=== PATIENT | female | born 2000 | race Caucasian/White ===

== ENCOUNTER 2019-03-13 07:43 | Inpatient (IN) ==
[2019-03-13] MEDS ORDERED: LACTATED RINGER'S 1,000 ML IV PRN ×3 (08:36→13:28)
[2019-03-13] MEDS ORDERED: OXYTOCIN 30 UNITS/500 ML BAG IV PRN ×3 (08:36→21:29)
[2019-03-13 08:57] LABS: Hematocrit (blood only) 35.8 % (37-47); Hemoglobin 12.2 g/dL (12.0-16.0); Mean Platelet Volume 10.3 fL (7.4-10.4); Platelet Count 265 K/uL (130-400); RDW Coefficient of Variation 14.4 % (11.5-14.5); RDW Standard Deviation 46.5 fL (36.4-46.3); Red Blood Count 4.07 M/uL (4.2-5.4); White Blood Count 14.31 K/uL (4.8-10.8)
[2019-03-13] MEDS: LACTATED RINGER'S 1,000 ML IV SCH ×5 (08:58→16:44)
[2019-03-13 08:59] LABS: Mean Corpuscular Hgb Conc 34.1 g/dL (32-36)
--- NOTE | 2019-03-13 09:13 | History & Physical Report ---
Date of Service March 13, 2019 Assessment & Plan (1) Elective induction of labor planned: 18yo at 41 weeks GA. IOL for late term . 1. Fetus: Cat 1 2. Labor: Melgoza out. Start Oxytocin 3. GBS - 4. Pain: Epidural PRN 5. Vitals wnl History of Present Illness Primary Care Provider: ANKIT PCP 18yo at 41.0 weeks GA. PAtient present for late term IOL. Denies ctx, VB, LOF. Good FM. course has been uncomplicated to date. A+/Rubella immune/ GBS - Allergies Allergy/AdvReac Type Severity Reaction Status Date / Time No Known Allergies Allergy Verified 03/13/19 07:56 Home Medications Home Medications Medication Instructions Recorded Confirmed Type PNV cmb#95-ferrous fumarate-FA 1 tab PO HS 12/01/18 03/13/19 History [] Patient History Family History Other Family history non-contributory Social History Preferred Language: Zambian Communication Ability: Effective Lead Scientist Required: No Beliefs That Will Affect Care: None marital status: Current Living Situation: Spouse Other Information That Helps Us Care for You: No Feels Safe at Home: Yes Smoking Status: Never smoker Do You Dip or Chew Tobacco: No Second Hand Exposure: No Tobacco Cessation Education Requested by Patient: No Hx Alcohol Use: No Hx Substance Use: No Physical Exam Genitourinary: OB Exam Abdomen: + vertex Manual OB Exam: + cervical dilation 3 cm, + cervical effacement 70%, + station -2 and + amniotic fluid OB Exam Monitor Tracing: + external FHT monitor used, + external uterine monitor used, + category I and + normal FHT variability EFW 7-8lb Results & Data Vital Signs (Past 12 Hours) Vital Signs Temp Pulse Resp BP 03/13/19 09:02 77 120/77 03/13/19 08:11 123 H 112/78 03/13/19 07:53 97.9 F 125 H 20 114/76
[2019-03-13] MEDS ORDERED: ePHEDrine sulfate 50 MG/ML AMP ONE (12:27)
[2019-03-13] MEDS ORDERED: BUPIVACAINE 0.25% 30 ML VIAL ONE (12:27)
[2019-03-13] MEDS ORDERED: fentaNYL 2MCG/ML ROPIV 1.25MG/ML 100 ML BAG EPI ONE (12:28)
[2019-03-13] MEDS ORDERED: fentaNYL citrate 100 MCG/2 ML VIAL ONE (12:28)
--- NOTE | 2019-03-13 13:22 | Anesthesiology Consultation ---
Date of Service March 13, 2019 Assessment & Plan (1) Encounter for pre-operative examination: Chart Review Chart Review: Acceptable Risk for Surgery and Patient NOT seen in Pre Admission Testing Consults Requested none History Height/Weight Height: 5 ft 4 in Weight: 88.451 kg Allergies Allergy/AdvReac Type Severity Reaction Status Date / Time No Known Allergies Allergy Verified 03/13/19 07:56 Medications Home Medications Medication Instructions Recorded Confirmed Last Taken PNV cmb#95-ferrous fumarate-FA 1 tab PO HS 12/01/18 03/13/19 03/12/19 22:00 [] Active Medications Generic Name Dose Route Start Last Admin Trade Name Freq PRN Reason Stop Dose Admin Lactated Ringer's 1,000 mls @ 125 mls/hr 03/13/19 08:45 03/13/19 13:08 Lr IV 03/15/19 08:44 999 mls/hr .Q8H DAMIEN Infusion Oxytocin 30 units in 500 mls @ 10 mls/hr 03/13/19 08:36 03/13/19 11:22 Pitocin IV 03/15/19 08:35 0.6 units/hr .Q24H PRN 10 mls/hr Labor Induction/Augmentation Titration Protocol 0.6 UNITS/HR Past Medical History Medical History No significant past medical history Past Family History Family History Other Family history non-contributory Social History Smoking Status: Never smoker Do You Dip or Chew Tobacco: No Hx Alcohol Use: No Hx Substance Use: No substance use type: does not use Physical Exam Vital Signs Last Vital Signs Temp 36.9 C 03/13/19 12:42 Pulse 103 H 03/13/19 13:18 Resp 18 03/13/19 13:17 BP 112/61 03/13/19 13:18 Pulse Ox 100 03/13/19 13:18 Testing Laboratory Results 03/13/19 08:49
[2019-03-13] MEDS ORDERED: fentaNYL 2MCG/ML ROPIV 1.25MG/ML 100 ML BAG EPI PRN (13:28)
[2019-03-13] MEDS ORDERED: NALOXONE HCL 0.4 MG/1 ML VIAL/CARP IV PRN (13:28)
[2019-03-13] MEDS ORDERED: NALBUPHINE HCL INJ 10 MG/ML AMP IV PRN (13:28)
[2019-03-13] MEDS ORDERED: ePHEDrine sulfate 50 MG/ML AMP IV PRN (13:28)
[2019-03-13] MEDS ORDERED: DiphenhydrAMINE HCL 50 MG/ML VIAL IV PRN (13:28)
[2019-03-13] MEDS ORDERED: ONDANSETRON INJ 2 MG/ML 2 ML VIAL IV PRN (13:28)
[2019-03-13] MEDS ORDERED: NALOXONE HCL 1 MG in SODIUM CHLORIDE 0.9% 1000ML 1,000 ML IV PRN (13:28)
--- NOTE | 2019-03-13 14:09 | Obstetrical Progress Note ---
Date of Service March 13, 2019 Assessment & Plan (1) Elective induction of labor planned: 18yo at 41 weeks GA. IOL for late term . 1. Fetus: Cat 1 2. Labor: Progressing. Continue Oxytocin, SROM clear ~1300 3. GBS - 4. Pain: Epidural placed 5. Vitals wnl Subjective Patient Doing well. Comfortable with epidural. SROM ~ 1300 Physical Exam Genitourinary: OB Exam Abdomen: + regular contractions Manual OB Exam: + cervical dilation (4-5), + cervical effacement 80%, + station -2 and + amniotic fluid clear OB Exam Monitor Tracing: + external FHT monitor used, + external uterine monitor used, + category I and + normal FHT variability Results & Data Vital Signs (Past 12 Hours) Vital Signs Temp Pulse Resp BP Pulse Ox 03/13/19 14:04 97 H 89 L 03/13/19 14:03 102 H 96 03/13/19 14:00 98.2 F 20 03/13/19 13:58 104 H 100 03/13/19 13:56 95 H 94 03/13/19 13:55 111 H 116/74 03/13/19 13:53 103 H 100 03/13/19 13:50 102 H 121/71 03/13/19 13:48 100 H 100 03/13/19 13:45 86 119/69 03/13/19 13:44 97 H 92 03/13/19 13:43 99 H 98 03/13/19 13:40 90 113/63 03/13/19 13:38 92 H 100 03/13/19 13:35 96 H 117/65 03/13/19 13:33 100 H 97 03/13/19 13:30 88 20 118/67 03/13/19 13:28 88 100 03/13/19 13:24 95 H 120/69 03/13/19 13:23 93 H 100 03/13/19 13:22 89 121/68 03/13/19 13:20 94 H 123/65 03/13/19 13:18 103 H 112/61 100 03/13/19 13:17 18 03/13/19 13:16 88 109/57 L 03/13/19 13:14 100 H 106/57 L 03/13/19 13:13 104 H 100 03/13/19 13:12 105 H 103/58 L 03/13/19 13:11 109 H 109/53 L 03/13/19 13:08 106 H 88/51 L 100 03/13/19 13:06 20 03/13/19 13:03 99 H 100 03/13/19 13:02 101 H 118/58 L 03/13/19 13:00 88 128/73 03/13/19 12:58 105 H 100 03/13/19 12:53 102 H 100 03/13/19 12:48 91 H 100 03/13/19 12:43 82 100 03/13/19 12:42 98.4 F 81 20 122/79 03/13/19 12:38 84 100 03/13/19 12:03 88 119/80 03/13/19 11:04 83 120/68 03/13/19 11:00 98.6 F 20 03/13/19 10:10 85 110/68 03/13/19 09:02 99.1 F 77 20 120/77 03/13/19 08:11 123 H 112/78 03/13/19 07:53 97.9 F 125 H 20 114/76
[2019-03-13] MEDS ORDERED: Nursing to Pharmacy Communication ONE (19:19)
[2019-03-13] MEDS ORDERED: HYDROCORTISONE ACETATE 25 MG SUPP PR PRN (21:29)
[2019-03-13] MEDS ORDERED: SUPERCREAM 0.870% 15 GM JAR EXT PRN (21:29)
[2019-03-13] MEDS ORDERED: ACETAMINOPHEN 325 MG TAB PO PRN (21:29)
[2019-03-13] MEDS ORDERED: BENZOCAINE 20% AER SPR 82.5 GM CAN EXT PRN (21:29)
[2019-03-13] MEDS ORDERED: DIPHTHERIA/TETANUS/PERTUSSIS 0.5 ML SYR/VIAL IM ONE (21:29)
--- NOTE | 2019-03-13 23:26 | Anesthesia Procedure Note ---
Date of Service March 13, 2019 Anesthesia Post Epidural Note Vital Signs Vital Signs: Temp Pulse Resp BP Pulse Ox 37.0 C 114 H 18 126/68 99 03/13/19 22:50 03/13/19 23:20 03/13/19 22:50 03/13/19 23:20 03/13/19 21:18 Pain Intensity Abdomen: Pain Intensity: 5 Notes Mental Status: alert / awake / arousable Patient Amnestic to Procedure: Yes Nausea / Vomiting: adequately controlled Pain: adequately controlled Airway Patency, RR, SpO2: stable & adequate BP & HR: stable & adequate Hydration State: stable & adequate Neuraxial Anesthesia: sensory block resolved Anesthetic Complications: no major complications apparent and Pt Satisfied with anesthetic care Epidural: Removed without complications and With tip intact
[2019-03-14 06:09] LABS: Hematocrit (blood only) 32.6 % (37-47); Hemoglobin 10.9 g/dL (12.0-16.0); Mean Corpuscular Hgb Conc 33.4 g/dL (32-36); Mean Corpuscular Volume 87.6 fL (80-100); Mean Platelet Volume 10.4 fL (7.4-10.4); Platelet Count 231 K/uL (130-400); RDW Coefficient of Variation 14.5 % (11.5-14.5); RDW Standard Deviation 46.6 fL (36.4-46.3); Red Blood Count 3.72 M/uL (4.2-5.4); White Blood Count 17.97 K/uL (4.8-10.8)
--- NOTE | 2019-03-14 08:12 | Obstetrical Progress Note ---
Date of Service <Alesha Blevins MD - Last Filed: 03/14/19 08:27> March 14, 2019 Assessment & Plan <Alesha Blevins MD - Last Filed: 03/14/19 08:27> (1) care following vaginal delivery: 18yo with at 41 weeks. PPD #1 -Pt tired,with headache. Advised goal of rest today. -Routine care -Ambulation encouraged -Pain control Subjective <Alesha Blevins MD - Last Filed: 03/14/19 08:27> Ambulation: ambulating normally Voiding: no voiding problems Passing Gas:: Yes Diet Tolerance:: regular diet Lochia:: Moderate Feeding Type:: breast feeding Current Pain Level(1-10): 4 Eyes: no problem reported (no blurry vision) Respiratory: no dyspnea Cardiovascular: no chest pain, no palpitations, no lightheadedness and no calf pain Gastrointestinal: no nausea and no vomiting Genitourinary (female): no dysuria Neurologic: + headache(s) (4/10 headache. States she hasn't slept much for the last 27 hours.) Physical Exam <Alesha Blevins MD - Last Filed: 03/14/19 08:27> Vital Signs (Past 24 Hours) Last Vital Signs Temp 36.8 C 03/14/19 03:00 Pulse 95 H 03/14/19 03:00 Resp 18 03/14/19 03:00 BP 107/61 03/14/19 03:00 Pulse Ox 99 03/13/19 21:18 Respiratory normal respiratory effort, lungs clear to auscultation Cardiovascular Rate/Rhythm: regular rate and regular rhythm Extremities: no calf tenderness Genitourinary OB Exam Abdomen: + fundal height Fundus: + firm and + relation to umbilicus (at umbilicus) Results & Data <Alesha Blevins MD - Last Filed: 03/14/19 08:27> Laboratory Results Laboratory Results - last 24 hr 03/13/19 03/14/19 08:49 05:47 WBC 14.31 H 17.97 H RBC 4.07 L 3.72 L Hgb 12.2 10.9 L Hct 35.8 L 32.6 L MCV 88.0 87.6 MCH 30.0 29.3 MCHC 34.1 33.4 RDW Std Deviation 46.5 H 46.6 H RDW Coeff of Sohail 14.4 14.5 Plt Count 265 231 MPV 10.3 10.4 Medications Administered Home Medications PNV cmb#95-ferrous fumarate-FA [] 1 tab PO HS 12/01/18 [History Confirmed 03/13/19] Active Medications Acetaminophen (Tylenol) 650 mg PO Q6H PRN PRN Reason: Pain/MARTINEZ/Fever Stop: 04/12/19 21:28 Benzocaine (Dermoplast Pain Relieving [place]) 1 appln EXT PRN PRN PRN Reason: Perineal Discomfort Stop: 04/12/19 21:28 Bisacodyl (Dulcolax) 5 mg PO 2000 [facility] Stop: 03/14/19 20:01 Bisacodyl (Dulcolax) 10 mg PA DAILY PRN PRN Reason: No BM on 2nd post- day Stop: 04/14/19 08:59 Cocaine HCl (Supercream 0.870%) 1 gm EXT BID PRN PRN Reason: Hemorrhoidal Inflammation Stop: 03/27/19 21:28 Diphenhydramine HCl (Benadryl) 25 mg IV Q6H PRN PRN Reason: Itching Stop: 03/14/19 13:27 Docusate Sodium (Colace) 100 mg PO BID [facility] Stop: 04/13/19 08:59 Ephedrine Sulfate (Ephedrine Sulfate) 10 mg IV Q5M PRN PRN Reason: Hypotension Stop: 03/14/19 13:27 Hydrocortisone (Anusol Hc) 25 mg PA BID PRN PRN Reason: Hemorrhoidal Inflammation Stop: 04/12/19 21:28 Lactated Ringer's (Lr) 1,000 mls @ 999 mls/hr IV .Q1H1M PRN PRN Reason: Tachysystole Stop: 03/15/19 08:35 Oxytocin (Pitocin) 30 units in 500 mls @ 333.333 mls/hr IV .Q1H30M PRN; Protocol PRN Reason: Bleeding Control Stop: 04/12/19 08:35 Last Titration: 03/13/19 23:30 Dose: Infused Documented by: Naloxone HCl 1 mg/ Sodium (Chloride) 1,002.5 mls @ 50 mls/hr IV .Q20H3M PRN PRN Reason: itching or nausea Stop: 03/14/19 13:27 Lactated Ringer's (Lr) 1,000 mls @ 999 mls/hr IV .Q1H1M PRN PRN Reason: Hypotension Stop: 03/14/19 13:27 Oxytocin (Pitocin) 30 units in 500 mls @ 333.333 mls/hr IV .Q1H30M PRN; Protocol PRN Reason: Bleeding Control Ibuprofen (Motrin) 600 mg PO Q4H PRN PRN Reason: Pain/MARTINEZ/Cramping/Fever Stop: 04/12/19 21:28 Nalbuphine HCl (Nubain) 5 mg IV Q10M PRN PRN Reason: itching or nausea Stop: 03/14/19 13:27 Naloxone HCl (Narcan) 0.1 mg IV UD PRN PRN Reason: respiratory depression Stop: 03/14/19 13:27 Ondansetron HCl (Zofran) 4 mg IV Q6H PRN PRN Reason: Nausea And Vomiting Stop: 03/14/19 13:27 Prenat Multivit/Bench Mechanic/Iron/Folic Ac ( Vitamin) 1 tab PO QAM [facility] Stop: 04/13/19 08:59 Ropivacaine (Epidural (L&D)) 100 ml EPI PRN PRN; Protocol PRN Reason: Pain R/T Labor Stop: 03/14/19 13:27 Last Admin: 03/13/19 19:55 Dose: 100 ml Documented by: <Garth Bhardwaj MD - Last Filed: 03/14/19 08:38> Co-Signing Physician Notes Patient seen and agree with findings and plan
[2019-03-14] MEDS: IBUPROFEN 600 MG TAB PO PRN ×3 (08:28→22:34)
[2019-03-14] MEDS: PRENATAL VITAMIN 1 TAB PO SCH (08:29)
[2019-03-14] MEDS: DOCUSATE SODIUM 100 MG CAP PO SCH ×2 (08:29→20:01)
--- NOTE | 2019-03-14 08:47 | Delivery Summary ---
DATE OF OPERATION: 03/13/2019 PROCEDURE: Normal spontaneous vaginal delivery with superficial left vaginal side wall laceration repairs. SURGEON: Garth Bhardwaj MD PREOPERATIVE DIAGNOSES: 1. Single intrauterine at 41 weeks gestational age. 2. Late term induction of labor. POSTOPERATIVE DIAGNOSES: 1. Single intrauterine at 41 weeks gestational age. 2. Late term induction of labor. 3. Delivered. ESTIMATED BLOOD LOSS: 300 mL. DRAINS: None. FLUIDS: Continuous lactated ringer. URINE OUTPUT: 300 mL at the completion of delivery. COMPLICATIONS: None. FINDINGS: A viable male infant with weight pending and Apgars of 8 and 9 at 1 and 5 minutes respectively. INDICATIONS: Ms. Pablo is a 18-year-old G1, P0, admitted at 41 weeks 0 days gestational age for late term induction of labor. At initial presentation, the patient was noted to have a Melgoza fell out while being admitted to labor and delivery. On first exam, she was found to be 3 cm dilated, 75% effaced, -2 station. Fetus was cephalic by Wolfgang's. Oxytocin was started per regular protocol. The patient continued to progress to the labor and received epidural. Upon reevaluation, she was found to be 5 cm dilated, 80% effaced, -1 station. Oxytocin was continued to be titrated. The patient continued to progress to complete-complete +2 with feeling desire to push. DESCRIPTION OF PROCEDURE: The patient progressed to 10 cm dilated, 100% effaced, +2 station, and pushed over intact perineum with epidural anesthesia and delivered a viable male with weight and Apgars as noted above. There was noted to be a compound hand presentation. The head was delivered and the posterior hand and arm were then delivered. The remainder of the anterior shoulder and body then followed. was noted to be vigorous upon delivery. was noted to be moving both arms normally. A 1-minute delayed cord clamping was initiated, after which the cord was double clamped and cut. Attention was then turned to delivery of the placenta which was delivered intact with 3-vessel cord, gentle cord traction, after blood was collected. On inspection of perineum, vagina and cervix, there was noted to be a superficial left vaginal side wall laceration which were repaired with 3-0 Vicryl in an interrupted stitch. Both mother and were stable in the immediate post-delivery. Needle, sponge and instrument counts were correct at the completion of the case. I attest to the content of the Intraoperative Record and any orders documented therein. Any exceptions are noted below. MTDD
[2019-03-14] MEDS ORDERED: BISACODYL 5 MG TABEC PO SCH (20:00)
[2019-03-15] MEDS: IBUPROFEN 600 MG TAB PO PRN ×2 (05:19→09:07)
--- NOTE | 2019-03-15 07:48 | Obstetrical Progress Note ---
Date of Service <Alesha Blevins MD - Last Filed: 03/15/19 07:49> March 15, 2019 Assessment & Plan <Alesha Blevins MD - Last Filed: 03/15/19 07:49> (1) care following vaginal delivery: 18yo with at 41 weeks. PPD #2 -Pt doing well -Discharge today -instructions reviewed Subjective <Alesha Blevins MD - Last Filed: 03/15/19 07:49> Ambulation: ambulating normally Voiding: no voiding problems Passing Gas:: Yes Diet Tolerance:: regular diet Lochia:: Moderate Feeding Type:: breast feeding Current Pain Level(1-10): 0 Eyes: no problem reported (no blurry vision) Respiratory: no dyspnea Cardiovascular: no palpitations, no lightheadedness and no calf pain Gastrointestinal: no nausea and no vomiting Genitourinary (female): no dysuria Neurologic: no headache(s) Physical Exam <Alesha Blevins MD - Last Filed: 03/15/19 07:49> Vital Signs (Past 24 Hours) Last Vital Signs Temp 36.5 C 03/15/19 00:30 Pulse 82 03/15/19 00:30 Resp 18 03/15/19 00:30 BP 114/77 03/15/19 00:30 Pulse Ox 96 03/15/19 00:30 Respiratory normal respiratory effort, lungs clear to auscultation Cardiovascular Rate/Rhythm: regular rate and regular rhythm Genitourinary OB Exam Abdomen: + fundal height Fundus: + firm and + relation to umbilicus (1 above) Results & Data <Alesha Blevins MD - Last Filed: 03/15/19 07:49> Medications Administered Home Medications PNV cmb#95-ferrous fumarate-FA [] 1 tab PO HS 12/01/18 [History Confirmed 03/13/19] Active Medications Acetaminophen (Tylenol) 650 mg PO Q6H PRN PRN Reason: Pain/MARTINEZ/Fever Stop: 04/12/19 21:28 Benzocaine (Dermoplast Pain Relieving [place]) 1 appln EXT PRN PRN PRN Reason: Perineal Discomfort Stop: 04/12/19 21:28 Bisacodyl (Dulcolax) 10 mg TN DAILY PRN PRN Reason: No BM on 2nd post- day Stop: 04/14/19 08:59 Cocaine HCl (Supercream 0.870%) 1 gm EXT BID PRN PRN Reason: Hemorrhoidal Inflammation Stop: 03/27/19 21:28 Docusate Sodium (Colace) 100 mg PO BID [facility] Stop: 04/13/19 08:59 Last Admin: 03/14/19 20:01 Dose: 100 mg Documented by: Hydrocortisone (Anusol Hc) 25 mg TN BID PRN PRN Reason: Hemorrhoidal Inflammation Stop: 04/12/19 21:28 Lactated Ringer's (Lr) 1,000 mls @ 999 mls/hr IV .Q1H1M PRN PRN Reason: Tachysystole Stop: 03/15/19 08:35 Oxytocin (Pitocin) 30 units in 500 mls @ 333.333 mls/hr IV .Q1H30M PRN; Protocol PRN Reason: Bleeding Control Stop: 04/12/19 08:35 Last Titration: 03/13/19 23:30 Dose: Infused Documented by: Oxytocin (Pitocin) 30 units in 500 mls @ 333.333 mls/hr IV .Q1H30M PRN; Protocol PRN Reason: Bleeding Control Ibuprofen (Motrin) 600 mg PO Q4H PRN PRN Reason: Pain/MARTINEZ/Cramping/Fever Stop: 04/12/19 21:28 Last Admin: 03/15/19 05:19 Dose: 600 mg Documented by: Prenat Multivit/Hand Wood Sander/Iron/Folic Ac ( Vitamin) 1 tab PO QAM [facility] Stop: 04/13/19 08:59 Last Admin: 03/14/19 08:29 Dose: 1 tab Documented by: <Shawnee Gonzalez MD, FACOG - Last Filed: 03/15/19 07:55> Co-Signing Physician Notes Resident Physician Supervision Note: I interviewed and examined the patient. Discussed with Dr. Longoria and agree with findings and plan as documented in the note. Any exceptions or clarifications are listed here: Doing well. Plan d/c. Instructions given. Documented By: Shawnee Gonzalez MD, FACOG
[2019-03-15 08:21] LABS: Hematocrit (blood only) 32.8 % (37-47); Hemoglobin 10.8 g/dL (12.0-16.0)
[2019-03-15] MEDS ORDERED: BISACODYL 10 MG SUPP PR PRN (09:00)
[2019-03-15] MEDS: PRENATAL VITAMIN 1 TAB PO SCH (09:07)
[2019-03-15] MEDS: DOCUSATE SODIUM 100 MG CAP PO SCH (09:07)
== END 2019-03-15 20:20 | disposition home or self-care (01) | DRG 806 ==
LOC: 4S1 07:43 → 4S2 03-14 00:47

== ENCOUNTER 2021-08-13 12:39 | Inpatient (IN) ==
[2021-08-13] MEDS ORDERED: OXYTOCIN 30 UNITS/500 ML BAG IV PRN ×3 (12:43→13:45)
--- NOTE | 2021-08-13 13:07 | History & Physical Report ---
Date of Service August 13, 2021 Assessment & Plan (1) with 41 completed weeks gestation: Plan: admit, gbs neg. plan to start pitocin. arom as indicated. epidural on demand. Anticipate . Admission and Anticipated Discharge Date Admission Date: August 13, 2021 History of Present Illness Chief Complaint: post dates induction Primary Care Provider: Yi Degroot DO Patient is a 20yowf with iup at 41 1/7 weeks who presents to labor and delivery for induction for postdates. She notes good fm. occasional contractions. no lof/vb. essentially uncomplicated. labs- Blood Type A Positive 12/25/20 Antibody Screen NEGATIVE 12/25/20 Hemoglobin 11.0 g/dL (12.0-16.0) L 05/15/21 Hematocrit 32.9 % (37-47) L 05/15/21 Mean Corpuscular Volume 87.2 fL (80-100) 12/25/20 Platelet Count 326 K/uL (130-400) 12/25/20 Rubella IgG Antibody Immune (Immune) 12/25/20 Rapid Plasma Reagin Nonreactive (Nonreactive) 12/25/20 Hepatitis B Surface Antigen Neg (Neg) 12/25/20 HIV (1&2) Ab and P24 Ag, 4th Gener Neg (Neg) 12/25/20 Glucose 1 Hour 50 gm Load 109 mg/dl (70-130) 05/15/21 Maternal Serum Alpha Fetoprotein 25.8 ng/mL 02/19/21 OB Optional Labs: Chlamydia trachomatis RNA NOT DETECTED (NOT DETECTED) 12/25/20 Neisseria gonorrhoeae RNA NOT DETECTED (NOT DETECTED) 12/25/20 Thyroid Stimulating Hormone (TSH) 3.300 uIu/ml (0.300-4.500) 12/01/18 Alpha Fetoprotein Triple Screen SEE NOTE 02/19/21 Labs Reviewed: cfdna low risk CF+, FOB neg afp neg- Allergies Allergy/AdvReac Type Severity Reaction Status Date / Time No Known Drug Allergies Allergy Mild none Verified 08/13/21 12:55 Home Medications Medication Instructions Recorded Confirmed Type vit no.95-ferrous 1 tab PO HS 12/01/18 08/13/21 History fumarate 28 mg-folic acid 800 mcg tablet () Patient History Medical History (Updated 08/13/21 @ 13:11 by Shawnee Gonzalez MD, FACOG) No significant past medical history Family History Mother Bicornate uterus Thyroid disease Grandmother (Maternal) Colorectal cancer Diabetes Twin Father Hypertension Social History Smoking Status: Never smoker Second Hand Exposure: No; Hx Alcohol Use: No Hx Substance Use: No Preferred Language: Kittitian Communication Ability: Effective Medical Leader Required: No Beliefs That Will Affect Care: None marital status: marital status details: Bridger (23) [phone] Current Living Situation: Spouse Current Living Situation Comment: lives with spouse and son, no pets. current occupational status: employed current occupation: [employer] Other Information That Helps Us Care for You: No Feels Safe at Home: Yes Safety Concerns: Feels Safe At This Time Assistive Devices: None OB History g1--03/02, , 8#7, no issues SHUTTLELESS [employer] History noncontributory Physical Exam Constitutional: WD/WN, vitals as above Gastrointestinal (Abdomen): soft, gravid, nt efw--8-9# Psychiatric: A+Ox3, euthymic affect Genitourinary: cx--2+/50/-2/mid/mod attempted to place chao bulb just just pulled out with minimal traction toco--intermittent contractions efm--125 wtih mod variability, accels to 160s, no decels Results & Data ([place]) Vital Signs (Past 12 Hours) Vital Signs Temp Pulse Resp BP 08/13/21 12:52 37.1 C 100 H 20 123/61 Coding Level of Care Code None Diagnoses with 41 completed weeks gestation Z3A.41
[2021-08-13 13:19] LABS: Hematocrit (blood only) 35.9 % (37-47); Hemoglobin 11.8 g/dL (12.0-16.0); Mean Corpuscular Hemoglobin 29.3 pg (25-34); Mean Corpuscular Hgb Conc 32.9 g/dL (32-36); Mean Corpuscular Volume 89.1 fL (80-100); Mean Platelet Volume 9.7 fL (7.4-10.4); Platelet Count 248 K/uL (130-400); RDW Coefficient of Variation 13.7 % (11.5-14.5); RDW Standard Deviation 44.8 fL (36.4-46.3); Red Blood Count 4.03 M/uL (4.2-5.4); White Blood Count 10.14 K/uL (4.8-10.8)
[2021-08-13] MEDS: LACTATED RINGER'S 1,000 ML IV PRN ×2 (13:43→21:38)
[2021-08-13] MEDS: ACETAMINOPHEN 325 MG TAB PO PRN (21:38)
[2021-08-13] MEDS ORDERED: BUPIVACAINE 0.25% 30 ML VIAL ONE (23:25)
[2021-08-13] MEDS ORDERED: SODIUM CHLORIDE 0.9% INJ 10 ML VIAL ONE (23:25)
[2021-08-13] MEDS ORDERED: ePHEDrine sulfate 50 MG/ML AMP ONE (23:25)
[2021-08-13] MEDS ORDERED: fentaNYL citrate 100 MCG/2 ML VIAL ONE (23:25)
[2021-08-13] MEDS ORDERED: fentaNYL 2MCG/ML ROPIVACAINE 1.25MG/ML 100 ML BAG EPI ONE (23:26)
[2021-08-14] MEDS ORDERED: ePHEDrine sulfate 50 MG/ML AMP IV PRN (00:22)
[2021-08-14] MEDS ORDERED: NALBUPHINE HCL INJ 10 MG/ML AMP IV PRN (00:22)
[2021-08-14] MEDS ORDERED: NALOXONE HCL 0.4 MG/1 ML VIAL/CARP IV PRN (00:22)
[2021-08-14] MEDS ORDERED: NALOXONE HCL 1 MG in SODIUM CHLORIDE 0.9% 1000ML 1,000 ML IV PRN (00:22)
[2021-08-14] MEDS ORDERED: fentaNYL 2MCG/ML ROPIVACAINE 1.25MG/ML 100 ML BAG EPI PRN (00:22)
[2021-08-14] MEDS ORDERED: diphenhydrAMINE 50 MG/ML VIAL IV PRN (00:22)
[2021-08-14] MEDS ORDERED: ONDANSETRON INJ 2 MG/ML 2 ML VIAL IV PRN (00:22)
--- NOTE | 2021-08-14 00:22 | Anesthesiology Consultation ---
Date of Service August 14, 2021 Assessment & Plan Chart Review Chart Review: Patient NOT seen in Pre Admission Testing and Acceptable Risk for Labor Epidural Consults Requested none ASA ASA2 Proposed Anesthesia Anesthesia Type: Labor Epidural Risk / Benefits Reviewed With: PT / POA / Parent / Guardian, Accepts Plan and Informed Consent Obtained History Height/Weight Height: 5 ft 5 in Weight: 96.162 kg Allergies Allergy/AdvReac Type Severity Reaction Status Date / Time No Known Drug Allergies Allergy Mild none Verified 08/13/21 12:55 Medications Home Medications Medication Instructions Recorded Confirmed Last Taken vit no.95-ferrous 1 tab PO HS 12/01/18 08/13/21 08/12/21 20:00 fumarate 28 mg-folic acid 800 mcg tablet () Active Medications Generic Name Dose Route Start Last Admin Trade Name Freq PRN Reason Stop Dose Admin Acetaminophen 650 mg 08/13/21 21:23 08/13/21 21:38 Acetaminophen 325 Mg Tab PO 09/12/21 21:22 650 mg Q4H PRN Administration Headache or Pain Lactated Ringer's 1,000 mls @ 125 mls/hr 08/13/21 12:43 08/13/21 22:15 Lr IV 08/15/21 12:42 125 mls/hr .Q8H PRN Infusion L&D Protocol Protocol Oxytocin 30 units in 500 mls @ 19 mls/hr 08/13/21 13:45 08/13/21 22:15 Pitocin IV 08/15/21 13:44 1.14 units/hr .Q24H PRN 19 mls/hr Labor Induction/Augmentation Titration Protocol 1.14 UNITS/HR Past Medical History Medical History (Updated 08/13/21 @ 13:11 by Shawnee Gonzalez MD, FACOG) No significant past medical history Exercise / Class Metabolic Activity II 4-5 Yardwork/Stairs/Walk up hill Past Family History Family History Mother Bicornate uterus Thyroid disease Grandmother (Maternal) Colorectal cancer Diabetes Twin Father Hypertension Past Anesthesia History No Hx of Anesthesia Complications and No Family Hx of Anesthesia Complications History of PONV No Hx of PONV and No Hx of Motion Sickness Social History Smoking Status: Never smoker Hx Alcohol Use: No Hx Substance Use: No substance use type: does not use Physical Exam Vital Signs Last Vital Signs Temp 36.9 C 08/13/21 23:30 Pulse 79 08/14/21 00:19 Resp 18 08/13/21 23:30 BP 87/50 L 08/14/21 00:19 Pulse Ox 94 08/14/21 00:16 ENMT Mouth: no dentition abnormality Thyromental Distance: > or= 3.5 Finger Breadths Mallampati Class: II Neck normal visual inspection Respiratory normal respiratory effort Auscultation: lungs clear to auscultation bilaterally Cardiovascular Rate/Rhythm: regular rate and regular rhythm Psychiatric Orientation: alert Testing Laboratory Results 08/13/21 13:09 Blood Type A Positive 08/13/21 13:09 Antibody Screen NEGATIVE 08/13/21 13:09
[2021-08-14] MEDS ORDERED: CALCIUM CARBONATE 500 MG CHEWABLE TAB PO PRN (00:58)
--- NOTE | 2021-08-14 01:02 | Labor Progress Brief Note ---
Date of Service August 14, 2021 Subjective comfortable with epidural Assessment & Plan (1) with 41 completed weeks gestation: Plan: continue current management. Fetus overall reassuring with occasional varia bles. hopefully on the verge of active labor. anticipate . Admission and Anticipated Discharge Date Admission Date: August 13, 2021 Physical Exam Physical Exam: cx--4/100/-2 iupc placed toco--q2min, pit at 19 efm--150s with mod variabiltiy, small accels, variables with some contractions. Results & Data ([facility]) Vital Signs (Past 12 Hours) Vital Signs Temp Pulse Resp BP Pulse Ox 08/14/21 00:56 79 93 08/14/21 00:54 80 94 08/14/21 00:51 85 93 08/14/21 00:49 93 H 94 08/14/21 00:46 75 94 08/14/21 00:43 72 96/53 L 08/14/21 00:41 75 94 08/14/21 00:36 73 93 08/14/21 00:31 85 95 08/14/21 00:28 74 94 08/14/21 00:26 81 95/51 L 94 08/14/21 00:22 92/54 L 08/14/21 00:21 86 94 08/14/21 00:19 79 87/50 L 08/14/21 00:16 73 97/55 L 94 08/14/21 00:13 70 99/54 L 08/14/21 00:11 71 94/51 L 93 08/14/21 00:10 80 94 08/14/21 00:08 92 H 98/68 L 08/14/21 00:06 85 99 08/14/21 00:04 84 92 08/14/21 00:01 83 100 08/13/21 23:56 82 100 08/13/21 23:51 84 95 08/13/21 23:30 36.9 C 18 08/13/21 22:48 74 121/74 08/13/21 21:15 36.7 C 18 08/13/21 19:15 37.1 C 18 08/13/21 19:00 84 130/81 08/13/21 18:01 80 131/79 08/13/21 16:51 36.7 C 86 20 123/73 08/13/21 16:03 82 123/77 08/13/21 15:02 37.3 C 77 20 118/75 08/13/21 13:54 84 125/71 Coding Level of Care Code None Diagnoses with 41 completed weeks gestation Z3A.41
[2021-08-14] MEDS: LACTATED RINGER'S 1,000 ML IV PRN ×2 (01:11→05:30)
--- NOTE | 2021-08-14 04:20 | Labor Progress Brief Note ---
Date of Service August 14, 2021 Subjective comfortable Assessment & Plan (1) with 41 completed weeks gestation: Plan: discussed concerns about fhr and lack of significant change given adequate appearing contractions. If unable to improve either, may need to proceed with c/s. Patient expresses understanding. Admission and Anticipated Discharge Date Admission Date: August 13, 2021 Physical Exam Physical Exam: cx--5-6/100/-2 forebag palpated and ruptured for clear toco--q2-3min, pit at 19, mvus>200 for most part since iupc placement. efm--140s with mod variability, occasional late appearing decel with some contractions responsive to position change Results & Data ([facility]) Vital Signs (Past 12 Hours) Vital Signs Temp Pulse Resp BP Pulse Ox 08/14/21 04:13 61 113/59 L 08/14/21 04:11 61 95 08/14/21 04:06 62 94 08/14/21 04:01 71 94 08/14/21 03:56 67 94 08/14/21 03:51 67 94 08/14/21 03:46 79 94 08/14/21 03:43 68 117/74 08/14/21 03:41 81 94 08/14/21 03:40 36.9 C 08/14/21 03:37 68 93 08/14/21 03:36 68 94 08/14/21 03:31 62 93 08/14/21 03:29 74 104/70 08/14/21 03:26 76 84/54 L 94 08/14/21 03:25 67 94 08/14/21 03:21 70 94 08/14/21 03:16 70 93 08/14/21 03:12 63 84/53 L 08/14/21 03:11 65 93 08/14/21 03:06 70 94 08/14/21 03:01 67 93 08/14/21 03:00 18 08/14/21 02:57 58 L 83/50 L 08/14/21 02:56 58 L 93 08/14/21 02:51 63 94 08/14/21 02:46 66 93 08/14/21 02:44 64 88/57 L 94 08/14/21 02:41 62 93 08/14/21 02:36 62 93 08/14/21 02:31 63 93 08/14/21 02:30 18 10/01/21 02:28 60 89/50 L 08/14/21 02:26 66 93 08/14/21 02:21 61 93 08/14/21 02:16 61 93 08/14/21 02:12 63 89/53 L 08/14/21 02:11 61 93 08/14/21 02:06 64 93 08/14/21 02:01 63 93 08/14/21 02:00 18 08/14/21 01:58 61 88/54 L 08/14/21 01:56 63 93 08/14/21 01:51 62 93 08/14/21 01:46 63 93 08/14/21 01:44 61 89/53 L 08/14/21 01:41 62 93 08/14/21 01:36 64 93 08/14/21 01:31 66 92 08/14/21 01:30 36.9 C 18 08/14/21 01:28 65 90/54 L 08/14/21 01:26 79 94 08/14/21 01:21 71 93 08/14/21 01:16 79 94 08/14/21 01:11 90 97/54 L 93 08/14/21 01:06 107 H 94 08/14/21 01:01 72 93 08/14/21 01:00 77 94 08/14/21 00:59 74 89/51 L 08/14/21 00:56 79 93 08/14/21 00:54 80 94 08/14/21 00:51 85 93 08/14/21 00:49 93 H 94 08/14/21 00:46 75 94 08/14/21 00:43 72 96/53 L 08/14/21 00:41 75 94 08/14/21 00:36 73 93 08/14/21 00:31 85 95 08/14/21 00:28 74 94 08/14/21 00:26 81 95/51 L 94 08/14/21 00:22 92/54 L 08/14/21 00:21 86 94 08/14/21 00:19 79 87/50 L 08/14/21 00:16 73 97/55 L 94 08/14/21 00:13 70 99/54 L 08/14/21 00:11 71 94/51 L 93 08/14/21 00:10 80 94 08/14/21 00:08 92 H 98/68 L 08/14/21 00:06 85 99 08/14/21 00:04 84 92 08/14/21 00:01 83 100 08/13/21 23:56 82 100 08/13/21 23:51 84 95 08/13/21 23:30 36.9 C 18 08/13/21 22:48 74 121/74 08/13/21 21:15 36.7 C 18 08/13/21 19:15 37.1 C 18 08/13/21 19:00 84 130/81 08/13/21 18:01 80 131/79 08/13/21 16:51 36.7 C 86 20 123/73 Coding Level of Care Code None Diagnoses with 41 completed weeks gestation Z3A.41
--- NOTE | 2021-08-14 04:56 | Communication Note ---
Date of Service: August 14, 2021 after breaking the forebag, several large variabile with contractions. Pitocin turned off, bolus given and turned side to side. Fetus now looking better. Unfortunately iupc stopped working, replaced and still not working but knew that contractions were adequate. Plan on restarting at /2. Hopefully after breaking the forebag she will now go quickly, but will continue to monitor. Patient noted lots of FM when placing iupc and +scalp stim.
--- NOTE | 2021-08-14 06:09 | Labor Progress Brief Note ---
Date of Service August 14, 2021 Subjective comfortable, some pressure Assessment & Plan (1) with 41 completed weeks gestation: Plan: fht much improved after stopping pit, restarted at 9. Unfortunately not making change . Was adequate at 19, so will slowly increase pitocin again. Will continue to monoitor closely. If cannot get to adeqaute contractions and cervical change without fht problems, or if can't get past this, may need c/s. Perhaps this baby is much larger than suspected. Patient and fob express understanding of the situation. Patient has succesfully delivered an 8+# baby with a 30 minute push in her prefious . Consider iupc trial again at next check. Admission and Anticipated Discharge Date Admission Date: August 13, 2021 Physical Exam Physical Exam: cx--unchanged toco--q2-4min, pit at 11 had to remove iupc because was not recording efm--120s wtih mod variablity, small accels, early decels Results & Data ([facility]) Vital Signs (Past 12 Hours) Vital Signs Temp Pulse Resp BP Pulse Ox 08/14/21 06:01 70 95 08/14/21 05:58 61 94/55 L 08/14/21 05:56 63 93 08/14/21 05:51 63 93 08/14/21 05:46 62 93 08/14/21 05:42 62 103/55 L 08/14/21 05:41 62 93 08/14/21 05:36 61 93 08/14/21 05:31 63 93 08/14/21 05:30 36.9 C 18 08/14/21 05:28 60 97/57 L 08/14/21 05:26 60 93 08/14/21 05:21 59 L 93 08/14/21 05:16 60 93 08/14/21 05:12 60 98/54 L 08/14/21 05:11 59 L 93 08/14/21 05:06 60 93 08/14/21 05:01 65 92 08/14/21 05:00 18 08/14/21 04:59 66 107/59 L 08/14/21 04:56 62 94 08/14/21 04:51 61 93 08/14/21 04:46 63 94 08/14/21 04:45 65 106/67 08/14/21 04:41 67 93 08/14/21 04:36 66 94 08/14/21 04:31 63 94 08/14/21 04:26 67 93 08/14/21 04:21 68 94 08/14/21 04:16 64 95 08/14/21 04:13 61 113/59 L 08/14/21 04:11 61 95 08/14/21 04:06 62 94 08/14/21 04:01 71 94 08/14/21 03:56 67 94 08/14/21 03:51 67 94 08/14/21 03:46 79 94 08/14/21 03:43 68 117/74 08/14/21 03:41 81 94 08/14/21 03:40 36.9 C 08/14/21 03:37 68 93 08/14/21 03:36 68 94 08/14/21 03:31 62 93 08/14/21 03:29 74 104/70 08/14/21 03:26 76 84/54 L 94 08/14/21 03:25 67 94 08/14/21 03:21 70 94 08/14/21 03:16 70 93 08/14/21 03:12 63 84/53 L 08/14/21 03:11 65 93 08/14/21 03:06 70 94 08/14/21 03:01 67 93 08/14/21 03:00 18 08/14/21 02:57 58 L 83/50 L 08/14/21 02:56 58 L 93 08/14/21 02:51 63 94 08/14/21 02:46 66 93 08/14/21 02:44 64 88/57 L 94 08/14/21 02:41 62 93 08/14/21 02:36 62 93 08/14/21 02:31 63 93 08/14/21 02:30 18 08/14/21 02:28 60 89/50 L 08/14/21 02:26 66 93 08/14/21 02:21 61 93 08/14/21 02:16 61 93 08/14/21 02:12 63 89/53 L 08/14/21 02:11 61 93 08/14/21 02:06 64 93 08/14/21 02:01 63 93 08/14/21 02:00 18 08/14/21 01:58 61 88/54 L 08/14/21 01:56 63 93 08/14/21 01:51 62 93 08/14/21 01:46 63 93 08/14/21 01:44 61 89/53 L 08/14/21 01:41 62 93 08/14/21 01:36 64 93 08/14/21 01:31 66 92 08/14/21 01:30 36.9 C 18 08/14/21 01:28 65 90/54 L 08/14/21 01:26 79 94 08/14/21 01:21 71 93 08/14/21 01:16 79 94 08/14/21 01:11 90 97/54 L 93 08/14/21 01:06 107 H 94 08/14/21 01:01 72 93 08/14/21 01:00 77 94 08/14/21 00:59 74 89/51 L 08/14/21 00:56 79 93 08/14/21 00:54 80 94 08/14/21 00:51 85 93 08/14/21 00:49 93 H 94 08/14/21 00:46 75 94 08/14/21 00:43 72 96/53 L 08/14/21 00:41 75 94 08/14/21 00:36 73 93 08/14/21 00:31 85 95 08/14/21 00:28 74 94 08/14/21 00:26 81 95/51 L 94 08/14/21 00:22 92/54 L 08/14/21 00:21 86 94 08/14/21 00:19 79 87/50 L 08/14/21 00:16 73 97/55 L 94 08/14/21 00:13 70 99/54 L 08/14/21 00:11 71 94/51 L 93 08/14/21 00:10 80 94 08/14/21 00:08 92 H 98/68 L 08/14/21 00:06 85 99 08/14/21 00:04 84 92 08/14/21 00:01 83 100 08/13/21 23:56 82 100 08/13/21 23:51 84 95 08/13/21 23:30 36.9 C 18 08/13/21 22:48 74 121/74 08/13/21 21:15 36.7 C 18 08/13/21 19:15 37.1 C 18 08/13/21 19:00 84 130/81 Coding Level of Care Code None Diagnoses with 41 completed weeks gestation Z3A.41
--- NOTE | 2021-08-14 07:12 | Labor Progress Brief Note ---
Date of Service August 14, 2021 Subjective feeling lots of pressure Assessment & Plan (1) with 41 completed weeks gestation: Plan: now active and making rapid progress. fetus reassuring. anticipate . Admission and Anticipated Discharge Date Admission Date: August 13, 2021 Physical Exam Physical Exam: cx--9/c/0 toco--q2-3min, pit at 12 efm--120s wtih mod variability, small accels., early with ctx. Results & Data ([facility]) Vital Signs (Past 12 Hours) Vital Signs Temp Pulse Resp BP Pulse Ox 08/14/21 07:06 82 96 08/14/21 07:01 74 96 08/14/21 07:00 18 08/14/21 06:57 71 114/68 08/14/21 06:56 68 94 08/14/21 06:51 67 94 08/14/21 06:46 74 93 08/14/21 06:42 66 112/66 08/14/21 06:41 76 94 08/14/21 06:36 64 93 08/14/21 06:31 64 94 08/14/21 06:30 18 08/14/21 06:27 62 107/63 08/14/21 06:26 62 93 08/14/21 06:21 64 94 08/14/21 06:16 65 93 08/14/21 06:12 62 105/64 08/14/21 06:11 63 93 08/14/21 06:06 70 94 08/14/21 06:01 70 95 08/14/21 05:58 61 94/55 L 08/14/21 05:56 63 93 08/14/21 05:51 63 93 08/14/21 05:46 62 93 08/14/21 05:42 62 103/55 L 08/14/21 05:41 62 93 08/14/21 05:36 61 93 08/14/21 05:31 63 93 08/14/21 05:30 36.9 C 18 08/14/21 05:28 60 97/57 L 08/14/21 05:26 60 93 08/14/21 05:21 59 L 93 08/14/21 05:16 60 93 08/14/21 05:12 60 98/54 L 08/14/21 05:11 59 L 93 08/14/21 05:06 60 93 08/14/21 05:01 65 92 08/14/21 05:00 18 08/14/21 04:59 66 107/59 L 08/14/21 04:56 62 94 08/14/21 04:51 61 93 08/14/21 04:46 63 94 08/14/21 04:45 65 106/67 08/14/21 04:41 67 93 08/14/21 04:36 66 94 08/14/21 04:31 63 94 08/14/21 04:26 67 93 08/14/21 04:21 68 94 08/14/21 04:16 64 95 08/14/21 04:13 61 113/59 L 08/14/21 04:11 61 95 08/14/21 04:06 62 94 08/14/21 04:01 71 94 08/14/21 03:56 67 94 08/14/21 03:51 67 94 08/14/21 03:46 79 94 08/14/21 03:43 68 117/74 08/14/21 03:41 81 94 08/14/21 03:40 36.9 C 08/14/21 03:37 68 93 08/14/21 03:36 68 94 08/14/21 03:31 62 93 08/14/21 03:29 74 104/70 08/14/21 03:26 76 84/54 L 94 08/14/21 03:25 67 94 08/14/21 03:21 70 94 08/14/21 03:16 70 93 08/14/21 03:12 63 84/53 L 08/14/21 03:11 65 93 08/14/21 03:06 70 94 08/14/21 03:01 67 93 08/14/21 03:00 18 08/14/21 02:57 58 L 83/50 L 08/14/21 02:56 58 L 93 08/14/21 02:51 63 94 08/14/21 02:46 66 93 08/14/21 02:44 64 88/57 L 94 08/14/21 02:41 62 93 08/14/21 02:36 62 93 08/14/21 02:31 63 93 08/14/21 02:30 18 08/14/21 02:28 60 89/50 L 08/14/21 02:26 66 93 08/14/21 02:21 61 93 08/14/21 02:16 61 93 08/14/21 02:12 63 89/53 L 08/14/21 02:11 61 93 08/14/21 02:06 64 93 08/14/21 02:01 63 93 08/14/21 02:00 18 08/14/21 01:58 61 88/54 L 08/14/21 01:56 63 93 08/14/21 01:51 62 93 08/14/21 01:46 63 93 08/14/21 01:44 61 89/53 L 08/14/21 01:41 62 93 08/14/21 01:36 64 93 08/14/21 01:31 66 92 08/14/21 01:30 36.9 C 18 08/14/21 01:28 65 90/54 L 08/14/21 01:26 79 94 08/14/21 01:21 71 93 08/14/21 01:16 79 94 08/14/21 01:11 90 97/54 L 93 08/14/21 01:06 107 H 94 08/14/21 01:01 72 93 08/14/21 01:00 77 94 08/14/21 00:59 74 89/51 L 08/14/21 00:56 79 93 08/14/21 00:54 80 94 08/14/21 00:51 85 93 08/14/21 00:49 93 H 94 08/14/21 00:46 75 94 08/14/21 00:43 72 96/53 L 08/14/21 00:41 75 94 08/14/21 00:36 73 93 08/14/21 00:31 85 95 08/14/21 00:28 74 94 08/14/21 00:26 81 95/51 L 94 08/14/21 00:22 92/54 L 08/14/21 00:21 86 94 08/14/21 00:19 79 87/50 L 08/14/21 00:16 73 97/55 L 94 08/14/21 00:13 70 99/54 L 08/14/21 00:11 71 94/51 L 93 08/14/21 00:10 80 94 08/14/21 00:08 92 H 98/68 L 08/14/21 00:06 85 99 08/14/21 00:04 84 92 08/14/21 00:01 83 100 08/13/21 23:56 82 100 08/13/21 23:51 84 95 08/13/21 23:30 36.9 C 18 08/13/21 22:48 74 121/74 08/13/21 21:15 36.7 C 18 08/13/21 19:15 37.1 C 18 Coding Level of Care Code None Diagnoses with 41 completed weeks gestation Z3A.41
[2021-08-14] MEDS ORDERED: BENZOCAINE 20% AER SPR 82.5 GM CAN EXT PRN (09:03)
[2021-08-14] MEDS ORDERED: ACETAMINOPHEN 325 MG TAB PO PRN (09:03)
[2021-08-14] MEDS ORDERED: SUPERCREAM 0.870% 15 GM JAR EXT PRN (09:03)
[2021-08-14] MEDS ORDERED: bisacodyL 10 MG SUPP PR PRN (09:03)
[2021-08-14] MEDS ORDERED: oxyCODONE/ACETAMINOPHEN 5mg/325mg TAB PO PRN (09:03)
[2021-08-14] MEDS ORDERED: OXYTOCIN 30 UNITS/500 ML BAG IV PRN (09:03)
[2021-08-14] MEDS ORDERED: HYDROCORTISONE ACETATE 25 MG SUPP PR PRN (09:03)
--- NOTE | 2021-08-14 09:36 | Anesthesia Procedure Note ---
Date of Service August 14, 2021 Anesthesia Post Epidural Note Vital Signs Vital Signs: Temp Pulse Resp BP Pulse Ox 36.9 C 75 18 124/64 94 08/14/21 05:30 08/14/21 09:27 08/14/21 07:00 08/14/21 09:27 08/14/21 08:57 Notes Mental Status: alert / awake / arousable Nausea / Vomiting: adequately controlled Pain: adequately controlled Airway Patency, RR, SpO2: stable & adequate BP & HR: stable & adequate Hydration State: stable & adequate Neuraxial Anesthesia: was administered and sensory block is resolving Anesthetic Complications: no major complications apparent Epidural: Removed without complications and With tip intact
--- NOTE | 2021-08-14 10:43 | Delivery Summary ---
Vaginal Delivery Summary Date of Service August 14, 2021 Vaginal Delivery Summary Patient was admitted for induction of labor because of postterm . Pitocin augmentation of her labor was begun she progressed to full dilation and pushed effectively over intact perineum for delivery of a viable male . The rest of the delivered with ease and was placed on the mother's abdomen for further attention and drying. The was vigorous and crying. After 1 minute the cord was clamped and cut. After cord blood was obtained the placenta was expressed intact with a three-vessel cord. There was a mild abrasion on the right labia majora which was not bleeding and therefore not repaired. Estimated blood loss is 200 cc. bleeding was controlled with fundal massage and dilute Pitocin. Mother and infant were doing well after delivery. [facility] Vaginal Delivery Charge Delivery Type Details: [facility]
[2021-08-14] MEDS: IBUPROFEN 600 MG TAB PO PRN ×2 (17:22→22:44)
[2021-08-14] MEDS: DOCUSATE SODIUM 100 MG CAP PO SCH (20:44)
[2021-08-14] MEDS: ACETAMINOPHEN 325 MG TAB PO PRN (20:44)
[2021-08-15] MEDS: IBUPROFEN 600 MG TAB PO PRN ×2 (02:20→07:26)
[2021-08-15 06:53] LABS: Hematocrit (blood only) 30.9 % (37-47); Hemoglobin 10.3 g/dL (12.0-16.0); Mean Corpuscular Hemoglobin 29.4 pg (25-34); Mean Corpuscular Hgb Conc 33.3 g/dL (32-36); Mean Corpuscular Volume 88.3 fL (80-100); Mean Platelet Volume 9.6 fL (7.4-10.4); Platelet Count 192 K/uL (130-400); RDW Coefficient of Variation 13.8 % (11.5-14.5); RDW Standard Deviation 45.1 fL (36.4-46.3); White Blood Count 10.89 K/uL (4.8-10.8)
--- NOTE | 2021-08-15 07:12 | Obstetrical Progress Note ---
Date of Service <Sedrick Treviño - Last Filed: 08/15/21 07:11> August 15, 2021 Assessment & Plan <Sedrick Treviño - Last Filed: 08/15/21 07:11> (1) Encounter for care and examination after delivery: 20 yo PPD 1 s/p at 41weeks -Continue routine care; keep pt additional 24 hrs. -Vitals reviewed- HDS, afebrile -A+, GBS-, Rubella immune -Encourage ambulation, regular diet -Pain control with ibuprofen, acetaminophen PRN -Encouraged <Renée Bunch MD - Last Filed: 08/15/21 08:11> (1) Encounter for care and examination after delivery: Subjective <Sedrick Treviño - Last Filed: 08/15/21 07:11> Ambulation: ambulating normally Voiding: no voiding problems Passing Gas:: Yes Diet Tolerance:: regular diet Lochia:: Moderate Feeding Type:: breast feeding Current Pain Level(1-10): 4 PPD 1 s/p . Patient seen and examined at bedside. Reports no acute overnight events. Review of Systems All systems reviewed & are unremarkable except as noted in HPI & below Physical Exam <Sedrick Treviño DO - Last Filed: 08/15/21 07:11> General: Alert, oriented, no acute distress Cardiac: Regular rate and rhythm, normal S1, S2. No murmurs appreciated. Respiratory: Clear to auscultation b/l with good air flow entry, symmetric chest rise and fall. No wheezes or crackles. No increased work of breathing or accessory muscle use Abdomen: Soft, nontender, nondistended. Fundus firm and palpable at 2 cm below umbilicus. No guarding or rebound. Skin: No rashes or lesions Extremities: Warm, dry, well-perfused with capillary refill <2s b/l. No lower extremity edema, erythema or swelling. Negative Behzad's sign b/l. Results & Data ([facility]) <Sedrick Treviño - Last Filed: 08/15/21 07:11> Vital Signs (Past 12 Hours) Vital Signs Temp Pulse Resp BP Pulse Ox 08/15/21 03:55 36.9 C 63 18 120/77 99 08/14/21 23:30 36.7 C 71 18 113/71 96 08/14/21 19:35 37.2 C 69 18 116/76 99 <Renée Bunch MD - Last Filed: 08/15/21 08:11> Co-Signing Physician Notes Resident Physician Supervision Note: I interviewed and examined the patient. Discussed with Dr. Treviño and agree with findings and plan as documented in the note. Any exceptions or clarifications are listed here: PP1 s/p , doing well and meeting milestones. Plan for d/c tomorrow Documented By: Renée Bunch MD
[2021-08-15] MEDS: DOCUSATE SODIUM 100 MG CAP PO SCH (07:27)
[2021-08-15] MEDS ORDERED: PRENATAL VITAMIN 1 TAB PO SCH (08:00)
[2021-08-15] MEDS ORDERED: DIPHTHERIA/TETANUS/PERTUSSIS 0.5 ML SYR/VIAL IM ONE (09:00)
[2021-08-15] MEDS: ACETAMINOPHEN 325 MG TAB PO PRN (14:49)
[2021-08-15] MEDS ORDERED: bisacodyL 5 MG TABEC PO SCH (20:00)
== END 2021-08-15 19:45 | disposition home or self-care (01) | DRG 807 ==
LOC: 4S1 12:39 → 4S2 08-14 12:24